=== PATIENT | male | born 2000 | race African-American/Black ===

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

== ENCOUNTER 2021-01-19 22:29 | Emergency (ER) | payer OTHER, MEDICAID ==
[~2021-01-19] VITALS: Ht 190.5 cm; Wt 102.6 kg
[2021-01-19 22:57] VITALS: BP 92/64
[2021-01-20] MEDS ORDERED: CEPH500T MT (01:19)
[2021-01-20] MEDS ORDERED: IBUP-2029 MT (01:19)
[2021-01-20] MEDS ORDERED: SULF1TAB48 MT (01:19)
== END 2021-01-20 01:56 | disposition home or self-care (01) ==
LOC: ER 22:29
DX: L02.214 Cutaneous abscess of groin (principal); J45.909 Unspecified asthma, uncomplicated; F12.10 Cannabis abuse, uncomplicated; Z79.899 Other long term (current) drug therapy
CPT/HCPCS: 99282; 99283